=== PATIENT | female | born 1970 | race Asian ===

== ENCOUNTER → 2017-02-15 | Outpatient (CLI) | payer OTHER ==
--- NOTE | 2017-02-15 15:03 | REPMRS ---
Patient History The patient states she had a clinical breast exam in January 2017.Patient is nulliparous. denied. No known family history of cancer. Digital Mammo Screening Bilat: February 15, 2017 - Exam #: [id number] Bilateral CC and MLO view(s) were taken. Technologist: Bisi García, Technologist Prior study comparison: November 19, 2014, digital bilateral screening mammo, performed at [facility]. FINDINGS: The breast tissue is extremely dense which could obscure a lesion on mammography. There is no evidence of cancer on this mammogram. No significant changes when compared with prior studies. ASSESSMENT: BI-RADS/ACR category 2 mammogram. Benign finding(s). Recommendation Routine screening mammogram of both breasts in 1 year (for women over age 40). This mammogram was interpreted with the aid of an FDA-approved computer-aided dectection system. Electronically Signed By: Beto Pagan MD 02/15/17 [id number]
== END ==
LOC: M RAD 13:17
PROVIDERS: ATTEND Nurse Practitioner Women's Health
DX: Z12.39 Encounter for other screening for malignant neoplasm of breast (principal)

== ENCOUNTER 2017-09-12 06:30 | Day surgery (SDC) | payer OTHER ==
[~2017-09-12] VITALS: Ht 154.9 cm; Wt 45.8 kg
[~2017-09-12 06:30] MED LIST: GLUC1CAP9 PO; MULT1TAB18 PO
[2017-09-12] MEDS ORDERED: LR 1,000 ML IV SCH (06:45)
[2017-09-12] MEDS ORDERED: LR 1,000 ML IV ONE (06:45)
[2017-09-12 07:07] LABS: CONTROL LINE HCG INT CTR LINE PRESENT
[2017-09-12 07:12] LABS: MEAN CORPUSCULAR HGB CONC 34.6 g/dl (32.0-36.5); MEAN CORPUSCULAR VOLUME 92.7 fl (80.0-96.0); PLATELET COUNT, AUTOMATED 305 10^3/uL (150-450); RED CELL DISTRIBUTION WIDTH 13.5 % (11.5-14.5)
[2017-09-12] MEDS ORDERED: LIDOCAINE W/EPINEPHRINE 1% 20ML VIAL As Ordered ONE (07:12)
[2017-09-12] MEDS ORDERED: IODINE STRONG SOLN 15 ML BTL As Ordered ONE (07:13)
[2017-09-12] MEDS ORDERED: ONDANSETRON 4MG/2ML VIAL (J2405) As Ordered ONE (07:15)
[2017-09-12] MEDS ORDERED: dexameTHASONE 4 MG/ML 1ML VIAL (J1100) As Ordered ONE (07:15)
[2017-09-12] MEDS ORDERED: KETOROLAC 60 MG/2 ML VIAL (J1885) As Ordered ONE (07:15)
[2017-09-12] MEDS ORDERED: PROPOFOL 200 MG/20 ML VIAL As Ordered ONE (07:15)
[2017-09-12] MEDS ORDERED: LIDOCAINE 2% INJ 100 MG/5 ML SDV (FOR ANES.) As Ordered ONE (07:15)
[2017-09-12] MEDS ORDERED: fentaNYL 100 MCG/2 ML INJECTION (J3010) As Ordered ONE (07:16)
[2017-09-12] MEDS ORDERED: MIDAZOLAM INJ 2 MG/2 ML VIAL (J2250) As Ordered ONE (07:16)
[2017-09-12 08:54] VITALS: BP 117/62
== END 2017-09-12 08:55 | disposition home or self-care (01) ==
LOC: M SDC 06:30
PROVIDERS: ATTEND Obstetrics & Gynecology
DX: D06.9 Carcinoma in situ of cervix, unspecified (principal); F17.210 Nicotine dependence, cigarettes, uncomplicated; Z79.899 Other long term (current) drug therapy
CPT/HCPCS: 36415; 57520; 84703; 85027; 86850; 86900; 86901; 88305; 88307; J1100; J1885; J2250; J2405; J3010

== ENCOUNTER → 2019-08-19 | Outpatient (CLI) | payer OTHER ==
--- NOTE | 2019-08-19 15:18 | REPMRS ---
Patient History No known family history of cancer. Digital Mammo Screening Bilat: August 19, 2019 - Exam #: [id number] Bilateral CC and MLO view(s) were taken. Technologist: Bisi García, Technologist Prior study comparison: February 15, 2017, bilateral digital mammo screening bilat performed at [facility]. FINDINGS: The breast tissue is extremely dense which could obscure a lesion on mammography. There is an extremely dense symmetrical pattern of residual fibroglandular tissue. There has been no change in the appearance of the mammogram from the previous studies. There is no interval development of dominant mass, archetectural distortion, or grouped microcalcifications suggestive of malignancy. Assessment: BI-RADS/ACR category 1 mammogram. Negative Mammogram. Recommendation Routine screening mammogram of both breasts in 1 year (for women over age 40). This patient's Lifetime Breast Cancer RIsk is estimated at 11.3 %. This mammogram was interpreted with the aid of an FDA-approved computer-aided dectection system. Electronically Signed By: Ace Parker MD 08/19/19 [id number]
== END ==
LOC: M RAD 13:20
PROVIDERS: ATTEND Advanced Practice Midwife
DX: Z12.31 Encounter for screening mammogram for malignant neoplasm of breast (principal)

== ENCOUNTER → 2022-06-29 | Outpatient (CLI) | payer OTHER ==
[~2022-06-29] MED LIST changes: +PROHANCE 279.3MG/ML 5ML VIAL ONE
== END ==
LOC: M PLAIMG 14:47
PROVIDERS: ATTEND Otolaryngology
DX: H93.11 Tinnitus, right ear (principal); H90.41 Sensorineural hearing loss, unilateral, right ear, with unrestricted hearing on the contralateral side
CPT/HCPCS: 70553; A9576

== ENCOUNTER → 2022-10-12 | Outpatient (CLI) | payer OTHER ==
[~2022-10-12] MED LIST changes: -PROHANCE 279.3MG/ML 5ML VIAL ONE
== END ==
LOC: M WHC 14:45
PROVIDERS: ATTEND Nurse Practitioner Primary Care
DX: Z12.31 Encounter for screening mammogram for malignant neoplasm of breast (principal)